=== PATIENT | male | born 1980 | race Caucasian/White ===

== ENCOUNTER 2019-11-19 22:10 | Emergency (ER) | payer SELFPAY ==
[~2019-11-19] VITALS: Ht 177.8 cm; Wt 72.6 kg
[2019-11-19] MEDS ORDERED: IPRATROPIUM BROMIDE 0.02% 2.5 ML NEB NEB STA (22:38)
[2019-11-19] MEDS ORDERED: ALBUTEROL SULF 0.083% NEB SOLN 3 ML NEB NEB STA (22:38)
[2019-11-19] MEDS ORDERED: DEXAMETHASONE SOD PHOS 10 MG/1 ML VIAL IM ONE (22:45)
[2019-11-19] MEDS ORDERED: DIPHENHYDRAMINE HCL 25 MG CAP PO ONE (22:45)
[2019-11-19] MEDS ORDERED: ALBUTEROL/IPRATROPIUM 3 ML NEB ONE (22:55)
[2019-11-19] MEDS ORDERED: DEXAMETHASONE SOD PHOS 10 MG/1 ML VIAL ONE (22:55)
[2019-11-19] MEDS ORDERED: DIPHENHYDRAMINE HCL 25 MG CAP ONE (22:55)
--- NOTE | 2019-11-19 23:15 | Emergency Department Note ---
History of Present Illnes History of Present Illness History of Present Illness This is a 39 year old male c/o anxiety, swelling tounge, swelling neck, SOB, feeling very hyper. Pt talks in full sentence, anxious. BP high, slightly tach, sat 99 percent RA. 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 Any updates have been documented here. Past Medical History Recent Fever: No Clinical Suspicion of Infectio: No New/Unexplained Change in Ment: No Other Medical History: anxiety Social History Smoking Cessation: Current some day smoker Physically hurt or threatened: No Family History Family history of heart diseas: No Review of Systems Review of Systems Constitutional: Reports no symptoms EENTM: Reports no symptoms, Reports throat pain, Reports throat swelling Cardiovascular: Reports no symptoms Respiratory: Reports dyspnea Gastrointestinal: Reports no symptoms Genitourinary: Reports no symptoms Musculoskeletal: Reports no symptoms Integumentary: Reports no symptoms Neurological: Reports no symptoms Psychological: Reports anxiety Endocrine: Reports no symptoms Hematological/Lymphatic: Reports no symptoms Physical Exam Related Data Allergies: Coded Allergies: cephalexin (Verified Allergy, Intermediate, 11/19/19) Physical Exam CONSTITUTIONAL Constitutional: Present well-developed, Present well-nourished, Present other (tattoos) HENT HENT: Present normocephalic, Present atraumatic, Present oropharynx clear/moist, Present nose normal HENT L/R: Present left ext ear normal, Present right ext ear normal EYES Eyes: Reports PERRL, Reports conjunctivae normal NECK Neck: Present ROM normal PULMONARY Pulmonary: Present effort normal, Present breath sounds normal CARDIOVASCULAR Cardiovascular: Present regular rhythm, Present heart sounds normal, Present capillary refill normal, Present normal rate GASTROINTESTINAL Abdominal: Present soft, Present nontender, Present bowel sounds normal GENITOURINARY Genitourinary: Present exam deferred SKIN Skin: Present warm, Present dry MUSCULOSKELETAL Musculoskeletal: Present ROM normal NEUROLOGICAL Neurological: Present alert, Present oriented x 3, Present no gross motor or sensory deficits PSYCHOLOGICAL Psychological: Present other (tangential thought, erratic behavior) Results Laboratory Lab results reviewed: Yes Laboratory comments opioid, ,met, THC positive from UDS Assessment & Plan Medical Decision Making MDM high on drugs Reassessment Reassessment time: 01:13 Reassessment calm down resting after 2 mg of Ativan IM Assessment & Plan Final Impression: (1) Methamphetamine abuse, episodic (2) Anxiety attack (3) Opiate abuse, episodic Depart Disposition: HOME, SELF-shelter Meds Active Scripts Chlordiazepoxide Hcl (CHLORDIAZEPOXIDE HCL) 25 Mg Capsule, 25 MG PO Q6H PRN for anxiety, #30 CAP Prov:HUMA ORTEZ MD 11/19/19 Medications in the ED Dexamethasone Sodium Phosphate 10 mg ONCE ONCE IM ; Start 11/19/19 at 22:45; Stop 11/19/19 at 22:46; Status UNV Ipratropium [place] 2.5 ml ONCE STAT NEB ; Start 11/19/19 at 22:38; Stop 11/19/19 at 22:44; Status DC Albuterol Sulfate 3 ml NOW STAT NEB ; Start 11/19/19 at 22:38; Stop 11/19/19 at 22:45; Status DC Diphenhydramine HCl 50 mg ONCE ONCE PO ; Start 11/19/19 at 22:45; Stop 11/19/19 at 22:46; Status UNV Albuterol/ Ipratropium 3 ml STK-MED ONCE .ROUTE ; Start 11/19/19 at 22:55; Stop 11/19/19 at 22:49; Status DC Physician Attestation Provider Attestation AAOx3, in NAD want to go home HUMA ORTEZ MD Nov 19, 2019 23:15
[2019-11-19] MEDS ORDERED: LORAZEPAM INJ 2 MG/ML VIAL ONE (23:42)
[2019-11-19] MEDS ORDERED: LORAZEPAM INJ 2 MG/ML VIAL IM ONE (23:45)
[2019-11-19] MEDS ORDERED: CHLORDIAZEPOXID25 MG PO (23:55)
[2019-11-19 23:59] LABS: AMPHETAMINES SCREEN,URINE POSITIVE (NEGATIVE)
[2019-11-20] LABS: BENZODIAZEPINES SCREEN,URINE NEGATIVE (NEGATIVE); PHENCYCLIDINE SCREEN,URINE NEGATIVE (NEGATIVE)
[2019-11-20 00:08] VITALS: BP 124/89
== END 2019-11-20 00:09 | disposition home or self-care (01) ==
LOC: FSED 22:41
DX: F41.9 Anxiety disorder, unspecified (principal); F15.10 Other stimulant abuse, uncomplicated; F11.10 Opioid abuse, uncomplicated; F17.210 Nicotine dependence, cigarettes, uncomplicated
CPT/HCPCS: 80307; 99284; J1100; J2060